=== PATIENT | male | born 1985 | race Two or more races ===

== ENCOUNTER 2021-05-25 08:50 | Emergency (ER) | payer MEDICAID ==
[~2021-05-25] VITALS: Ht 172.7 cm; Wt 92.0 kg
[2021-05-25 09:47] LABS: BASOPHILS % 0.9 % (0.0-2.0); EOSINOPHILS % 3.5 % (0.0-5.0); HEMATOCRIT. 43.4 % (42.0-52.0); HEMOGLOBIN. 14.8 g/dL (14.0-18.0); LYMPHOCYTES % 27.2 % (20.0-50.0); MEAN CORPUSCULAR HEMOGLOBIN 29.2 pg (28.0-32.0); MEAN CORPUSCULAR VOLUME 85.5 fL (80.0-94.0); MEAN PLATELET VOLUME 8.9 fl (7.4-10.4); MONOCYTES % 10.5 % (2.0-8.0); NEUTROPHILS % 57.9 % (40.0-76.0); PLATELET 218 x1000/uL (130-400); RED BLOOD CELL COUNT 5.08 mill/uL (4.7-6.1); RED CELL DISTRIBUTION WIDTH 15.3 % (11.6-14.6)
[2021-05-25 09:51] LABS: CHLORIDE 108 mEq/L (98-107)
[2021-05-25 10:58] VITALS: BP 123/73
== END 2021-05-25 11:15 | disposition home or self-care (01) ==
LOC: ER 09:57
DX: R07.89 Other chest pain (principal); Z72.820 Sleep deprivation; R20.2 Paresthesia of skin; F41.9 Anxiety disorder, unspecified
CPT/HCPCS: 36415; 71045; 80048; 84484; 85025; 93005; 99285